=== PATIENT | male | born 1960 | race Caucasian/White ===

== ENCOUNTER 2016-02-20 13:13 | Emergency (ER) | payer OTHER ==
[2016-02-20 13:19] VITALS: TEMP 98; BMI 31.6
--- NOTE | 2016-02-20 13:33 | PDOC ---
History of Present Illness <To Napier - Last Filed: 02/20/16 15:19> - General History Source: Patient Exam Limitations: No Limitations - History of Present Illness Initial Comments: 55 yo M on daily baby aspirin presents with head injury. He states that he was working with shelves, forgot that there were picture frames on one of them, and they all fell down, hitting him on the head. Denies stiff neck, N/V, weakness, numbness. He c/o mild headache. Denies vision changes. No other injuries. <Catherine Douglas - Last Filed: 02/20/16 16:07> - General Chief Complaint: Injury Stated Complaint: HEADACHES, DIZZINESS Time Seen by Provider: 02/20/16 13:18 Past History <To Napier - Last Filed: 02/20/16 15:19> - Past Medical History Anemia: No Asthma: Yes (YEARS AGO) Cancer: No Cardiac Disorders: Yes (MVP) CVA: No COPD: No CHF: No Dementia: No Diabetes: No GI Disorders: Yes (COLONOC ADENOMAS, DIVERTICULOSIS) Disorders: No HTN: Yes (CONTROLLED) Hypercholesterolemia: Yes Liver Disease: Yes (JAVIER, LIVER CYSTS) Seizures: No Thyroid Disease: No - Surgical History Abdominal Surgery: No Appendectomy: No Cardiac Surgery: No Cholecystectomy: No Lung Surgery: No Neurologic Surgery: No Orthopedic Surgery: No - Psycho/Social/Smoking Cessation Hx Suicidal Ideation: No Smoking History: Former smoker Have you smoked in the past 12 months: No If you are a former smoker, when did you quit?: 2014 Information on smoking cessation initiated: No Hx Alcohol Use: Yes (DAILY) Hx Substance Use Treatment: No <Catherine Douglas - Last Filed: 02/20/16 16:07> - Past Medical History Allergies/Adverse Reactions: Allergies Allergy/AdvReac Type Severity Reaction Status Date / Time No Known Allergies Allergy Verified 02/20/16 13:19 Home Medications: Ambulatory Orders Aspirin [ASA -] 81 mg PO DAILY 01/26/16 Cholecalciferol (Vitamin D3) [Vitamin D3 -] 1,000 unit PO DAILY 01/26/16 Multivitamins [Multivit ([facility] Formulary)] 1 tab PO DAILY 01/26/16 [place]-3 Fatty Acids [Fish Oil] 300 mg PO DAILY 01/26/16 Rosuvastatin Calcium [Crestor] 10 mg PO DAILY 01/26/16 Valsartan 160 mg PO DAILY 01/26/16 Review of Systems - Review of Systems Able to Perform ROS?: Yes Comments:: GENERAL/CONSTITUTIONAL: No fever or chills. No weakness. HEAD, EYES, EARS, NOSE AND THROAT: No change in vision. No ear pain or discharge. No sore throat. CARDIOVASCULAR: No chest pain or shortness of breath. RESPIRATORY: No cough, wheezing, or hemoptysis. GASTROINTESTINAL: No nausea, vomiting, diarrhea or constipation. GENITOURINARY: No dysuria, frequency, or change in urination. MUSCULOSKELETAL: No joint or muscle swelling or pain. No neck or back pain. SKIN: No rash NEUROLOGIC: +Mild headache. No vertigo, loss of consciousness, or change in strength/sensation. ENDOCRINE: No increased thirst. No abnormal weight change. HEMATOLOGIC/LYMPHATIC: No anemia, easy bleeding, or history of blood clots. ALLERGIC/IMMUNOLOGIC: No hives or skin allergy. <Catherine Douglas - Last Filed: 02/20/16 16:07> *Physical Exam - Vital Signs Last Vital Signs Temp Pulse Resp BP Pulse Ox 98 F 63 18 135/89 98 02/20/16 13:15 02/20/16 14:53 02/20/16 14:53 02/20/16 14:53 02/20/16 14:53 <To Napier - Last Filed: 02/20/16 15:19> - Vital Signs Last Vital Signs Temp Pulse Resp BP Pulse Ox 98 F 79 18 156/95 98 02/20/16 13:15 02/20/16 13:15 02/20/16 13:15 02/20/16 13:15 02/20/16 13:15 - Physical Exam Comments: GENERAL: Awake, alert, and fully oriented, in no acute distress HEAD: Slight erythema to the top of the head. No swelling, no breaks in the skin. EYES: PERRLA, EOMI, sclera anicteric, conjunctiva clear ENT: Auricles normal inspection, hearing grossly normal, nares patent, oropharynx clear without exudates. Moist mucosa NECK: Normal ROM, supple, no lymphadenopathy, JVD, or masses NEUROLOGICAL: Cranial nerves II through XII grossly intact. Normal speech, normal gait SKIN: Warm, Dry, normal turgor, no rashes or lesions noted. <Catherine Douglas - Last Filed: 02/20/16 16:07> ED Treatment Course - RADIOLOGY Radiograph Interpretation: 02/20/16 15:[address] Reviewed by: Dr. Hernan García Impression: No evidence of acute intracranial pathology. - Medications Given in the ED: ED Medications Discontinued Medications Generic Name Dose Route Start Last Admin Trade Name Irineo PRN Reason Stop Dose Admin Acetaminophen 650 mg 02/20/16 13:41 02/20/16 13:53 Tylenol - PO 02/20/16 13:42 650 mg ONCE ONE Administration <To Napier - Last Filed: 02/20/16 15:19> Medical Decision Making - Medical Decision Making CTH no acute findings. Patient is low risk for ICH. Stable for DC home. <Catherine Douglas - Last Filed: 02/20/16 16:07> *DC/Admit/Observation/Transfer <To Napier - Last Filed: 02/20/16 15:19> - Discharge Dispostion Admit: No <Catherine Douglas - Last Filed: 02/20/16 16:07> Diagnosis at time of Disposition: Head injury Qualifiers: Encounter type: initial encounter Qualified Code(s): S09.90XA - Unspecified injury of head, initial encounter - Discharge Dispostion Disposition: HOME Condition at time of disposition: Stable - Patient Instructions Printed Discharge Instructions: DI for Closed Head Injury
[2016-02-20] MEDS ORDERED: ACETAMINOPHEN 325 MG TABLET (FP) PO ONE (13:41)
[2016-02-20] MEDS ORDERED: ACETAMINOPHEN 325 MG TABLET (FP) ONE (13:49)
[2016-02-20 14:54] VITALS: BP 135/89; PULSE 63
== END 2016-02-20 15:27 | disposition home or self-care (01) ==
LOC: JER 13:13
DX: S09.8XXA Other specified injuries of head, initial encounter (principal); W20.8XXA Other cause of strike by thrown, projected or falling object, initial encounter; Y93.E9 Activity, other interior property and clothing maintenance; Y92.018 Other place in single-family (private) house as the place of occurrence of the external cause; I10 Essential (primary) hypertension; E78.00 Pure hypercholesterolemia, unspecified; I34.1 Nonrheumatic mitral (valve) prolapse
CPT/HCPCS: 70450-TC; 99284-25

== ENCOUNTER 2016-12-01 12:53 | Emergency (ER) | payer OTHER ==
[2016-12-01 13:03] VITALS: BP 150/97; PULSE 75; TEMP 98.1; BMI 33.0
[2016-12-01] MEDS ORDERED: KETOROLAC TROMETHAMINE 60 MG/2 ML VIAL IM ONE (13:07)
--- NOTE | 2016-12-01 13:08 | PDOC ---
History of Present Illness - General Chief Complaint: Pain Stated Complaint: LEFT KNEE PAIN Time Seen by Provider: 12/01/16 13:06 - History of Present Illness Initial Comments: 12/01/16 14:20 Chief complaint: Left knee pain History of present illness: During a round of golf yesterday, after which the patient did considerable walking, he developed severe pain in his left knee. He did not fall and there was no injury, twisting or otherwise. Last night the knee became swollen and more painful, especially with flexion. He took Motrin and Aleve without relief. Review of systems: There was no distinct injury or fall. No distal numbness tingling pain or weakness of the lower leg. No posterior calf swelling or tenderness. No chest pain, shortness of breath, abdominal pain, nausea, vomiting , diarrhea, visual or focal neurologic symptoms, unsteadiness of gait, although there is pain with weightbearing in the knee. Past medical history: Patient sustained a fall about a year ago with injuries to the left knee, but his injury resolved without sequelae. High blood pressure. Elevated cholesterol. Family history significant for coronary artery disease and diabetes in both parents. An older sisters healthy without known medical problems Social history: No tobacco or nonprescription drugs. Occasional social alcohol, none recently. senior web developer, still working full-time, stable home and family. Physical exam: Alert and oriented well-developed well-nourished no acute distress cheerful and cooperative Afebrile, vital signs normal Left knee: Mild diffuse swelling, no effusion, no erythema, induration, warmth, or point tenderness. No deformity. No stress tenderness of the MCL or LCL. Lockman is indeterminant due to pain and guarding. Range of motion is limited in flexion to around 90 before pain. Distal pulses full. No distal sensory or motor deficits. No posterior calf swelling or tenderness. No cords. Alysia negative Impression: Overuse injury of the knee, knee strain, ligamentous versus meniscus. Plan: X-ray and further orthopedic evaluation. Past History - Past Medical History Allergies/Adverse Reactions: Allergies Allergy/AdvReac Type Severity Reaction Status Date / Time No Known Allergies Allergy Verified 12/01/16 12:53 Home Medications: Ambulatory Orders Cholecalciferol (Vitamin D3) [Vitamin D3 -] 2,000 unit PO DAILY 01/26/16 Multivitamins [Multivit ([facility] Formulary)] 1 tab PO DAILY 01/26/16 [place]-3 Fatty Acids [Fish Oil] 300 mg PO DAILY 01/26/16 Rosuvastatin Calcium [Crestor] 10 mg PO DAILY 01/26/16 Valsartan 160 mg PO DAILY 01/26/16 Aspirin [Aspirin EC] 81 mg PO DAILY 12/01/16 Ketorolac Tromethamine [Toradol] 10 mg PO Q6H #20 tablet 12/01/16 Anemia: No Asthma: Yes (YEARS AGO) Cancer: No Cardiac Disorders: Yes (MVP) CVA: No COPD: No CHF: No Dementia: No Diabetes: No GI Disorders: Yes (COLONOC ADENOMAS, DIVERTICULOSIS) Disorders: No HTN: Yes (CONTROLLED) Hypercholesterolemia: Yes Liver Disease: Yes (JAVIER, LIVER CYSTS) Seizures: No Thyroid Disease: No - Surgical History Abdominal Surgery: No Appendectomy: No Cardiac Surgery: No Cholecystectomy: No Lung Surgery: No Neurologic Surgery: No Orthopedic Surgery: No - Suicide/Smoking/Psychosocial Hx Smoking History: Former smoker Have you smoked in the past 12 months: No If you are a former smoker, when did you quit?: 2014 Information on smoking cessation initiated: No Hx Alcohol Use: Yes (3-4 WEEKS 2 GLASSES OF WINE) Drug/Substance Use Hx: No Substance Use Type: Alcohol Hx Substance Use Treatment: No *Physical Exam - Vital Signs Last Vital Signs Temp Pulse Resp BP Pulse Ox 98.1 F 75 20 150/97 98 12/01/16 12:53 12/01/16 12:53 12/01/16 12:53 12/01/16 12:53 12/01/16 12:53 Medical Decision Making - Medical Decision Making 12/01/16 14:25 X-ray: Negative Asim wrap and knee immobilizer applied. Patient is much more comfortable in the knee immobilizer and able to ambulate extremely well. Instructed on the use of Asim wrap and immobilizer, and reviewed with his . Toradol administered IM with continuation of Toradol by mouth at home. The patient has a relationship with Dr. Hansen/ [facility], and has an appointment to follow-up with them early next week. He is encouraged to do so and aware that further evaluation may be necessary if his symptoms do not improve *DC/Admit/Observation/Transfer Diagnosis at time of Disposition: Knee sprain Qualifiers: Encounter type: initial encounter Involved ligament of knee: unspecified ligament Laterality: left Qualified Code(s): S83.92XA - Sprain of unspecified site of left knee, initial encounter - Discharge Dispostion Disposition: HOME Condition at time of disposition: Improved Admit: No - Prescriptions Prescriptions: Ketorolac Tromethamine [Toradol] 10 mg PO Q6H #20 tablet - Patient Instructions Printed Discharge Instructions: DI for Knee Sprain, How to Use an Elastic Bandage-Knee Sprain, How to Use a Knee Immobilizer Additional Instructions: See your orthopedist as scheduled in 2-3 days Medication as directed Rest ice elevate Asim wrap and knee immobilizer as directed. Avoid prolonged standing or walking, but steady moderately active.
[2016-12-01] MEDS ORDERED: KETOROLAC TROMETHAMINE 60 MG/2 ML VIAL ONE (13:43)
== END 2016-12-01 14:01 | disposition home or self-care (01) ==
LOC: FER 12:53
PROC: 3E0233Z Introduction of Anti-inflammatory into Muscle, Percutaneous Approach (ICD-10-PCS; principal; 2016-12-01)
DX: S83.92XA Sprain of unspecified site of left knee, initial encounter (principal); I10 Essential (primary) hypertension; E78.00 Pure hypercholesterolemia, unspecified
CPT/HCPCS: 73560-TC-LT; 99282-25

== ENCOUNTER 2018-05-31 18:25 | Emergency (ER) | payer OTHER ==
[2018-05-31 18:32] VITALS: BP 125/78; PULSE 98; TEMP 98.1; BMI 31.6
[2018-05-31] MEDS ORDERED: LIDOCAINE HCL 2% (20ML MULTI-DOSE VIAL) NR ONE (18:46)
--- NOTE | 2018-05-31 18:51 | PDOC ---
History of Present Illness - General History Source: Patient Exam Limitations: No Limitations - History of Present Illness Initial Comments: 05/31/18 18:54 The patient is a 58-year-old male with a past medical history significant for HTN and HLD presents to the emergency department with a thumb laceration. The patient reports he was putting up the patio umbrella when he pushed the button to adjust the umbrella when the umbrella slipped. The patient reports his edge of the right thumb was caught between the stand and the umbrella. The patient reports the wound started to bleed immediately. The patient states he irrigate the wound with water, with pain. The patient reports the daily use of 81 mg of ASA. Denies hx of DM or steroid use. Allergies: NKDA PCP: Dr. Gómez Arango. <Perla Heredia - Last Filed: 05/31/18 18:54> <Flynn Pisano - Last Filed: 05/31/18 19:10> - General Chief Complaint: Injury Stated Complaint: RT THUMB LACERATION Time Seen by Provider: 05/31/18 18:46 Past History <Perla Heredia - Last Filed: 05/31/18 18:54> - Past Medical History Anemia: No Asthma: Yes (YEARS AGO) Cancer: No Cardiac Disorders: Yes (MVP) CVA: No COPD: No CHF: No Dementia: No Diabetes: No GI Disorders: Yes (COLONOC ADENOMAS, DIVERTICULOSIS) Disorders: No HTN: Yes (CONTROLLED) Hypercholesterolemia: Yes Liver Disease: Yes (JAVIER, LIVER CYSTS) Seizures: No Thyroid Disease: No - Surgical History Abdominal Surgery: No Appendectomy: No Cardiac Surgery: No Cholecystectomy: No Lung Surgery: No Neurologic Surgery: No Orthopedic Surgery: No - Suicide/Smoking/Psychosocial Hx Smoking History: Never smoked Have you smoked in the past 12 months: No If you are a former smoker, when did you quit?: 2014 Information on smoking cessation initiated: No Hx Alcohol Use: Yes (DAILY) Drug/Substance Use Hx: No Substance Use Type: Alcohol Hx Substance Use Treatment: No <Flynn Pisano - Last Filed: 05/31/18 19:10> - Past Medical History Allergies/Adverse Reactions: Allergies Allergy/AdvReac Type Severity Reaction Status Date / Time No Known Allergies Allergy Verified 05/31/18 18:27 Home Medications: Ambulatory Orders Cholecalciferol (Vitamin D3) [Vitamin D3 -] 2,000 unit PO DAILY 01/26/16 Multivitamins [Multivit ([facility] Formulary)] 1 tab PO DAILY 01/26/16 [place]-3 Fatty Acids [Fish Oil] 300 mg PO DAILY 01/26/16 Rosuvastatin Calcium [Crestor] 10 mg PO DAILY 01/26/16 Valsartan 160 mg PO DAILY 01/26/16 Aspirin [Aspirin EC] 81 mg PO DAILY 12/01/16 Cider Vinegar [Apple Cider Vinegar] 500 mg PO ASDIR 05/31/18 Review of Systems - Review of Systems Able to Perform ROS?: Yes Comments:: 05/31/18 18:54 Constitutional - Pt denies Fever, Chills, weakness, HEENT: denies vision changes, sore throat Respiratory: Denies cough, sob, hemoptysis Cardiac: denies chest pain, palpitations, light headedness, leg swelling Abd/GI: denies abd pain, nausea, vomiting, blood per rectum, melena, diarrhea : denies dysuria, frequency, discharge Musculskelatal - denies back pain, joint swelling skin - +right thumb laceration. denies bruising, erythema, rash neurological: denies headache, numbness, focal weakness, tingling, ataxia, weakness hematologic: denies anemia, easy bruising, easy bleeding <Perla Heredia - Last Filed: 05/31/18 18:54> *Physical Exam - Vital Signs Last Vital Signs Temp Pulse Resp BP Pulse Ox 98.1 F 98 H 18 125/78 99 05/31/18 18:25 05/31/18 18:25 05/31/18 18:25 05/31/18 18:25 05/31/18 18:25 <Perla Heredia - Last Filed: 05/31/18 18:54> - Vital Signs Last Vital Signs Temp Pulse Resp BP Pulse Ox 98.1 F 98 H 18 125/78 99 05/31/18 18:25 05/31/18 18:25 05/31/18 18:25 05/31/18 18:25 05/31/18 18:25 - Physical Exam Comments: 05/31/18 19:06 MSK: skin avulsion on tip of Right thumb, no active bleeding, no nail involvement <Flynn Pisano - Last Filed: 05/31/18 19:10> Procedures - Consent Consent obtained: Verbal - Laceration/Wound Repair Right 1st digit Wound Length: to 2.5 cm Wound Explored: clean Wound's Depth, Shape: superficial Irrigated w/ Saline: Yes Anesthesia: 1% Lidocaine Amount of Anesthetic (ccs): 1 Wound Debrided: minimal Wound Repaired With: Dermabond <Flynn Pisano - Last Filed: 05/31/18 19:10> Medical Decision Making - Medical Decision Making 05/31/18 19:07 area numbed with topical lidocain, irrigated with sterile saline and dermabodned no skin for reapproximation, but dermabdon applied to prevent bleeding tetanus updated <Flynn Pisano - Last Filed: 05/31/18 19:10> *DC/Admit/Observation/Transfer - Attestations Scribe Attestion: 05/31/18 18:55 Documentation prepared by Perla Heredia, acting as medical biller/coder for Flynn Pisano MD. <Perla Heredia - Last Filed: 05/31/18 18:54> - Discharge Dispostion Decision to Admit order: No <Flynn Pisano - Last Filed: 05/31/18 19:10> Diagnosis at time of Disposition: Laceration of thumb Qualifiers: Encounter type: initial encounter Damage to nail status: without damage Foreign body presence: without foreign body Laterality: right Qualified Code(s) : S61.011A - Laceration without foreign body of right thumb without damage to nail, initial encounter - Discharge Dispostion Disposition: HOME Condition at time of disposition: Improved - Referrals Referrals: Jacob Arango MD [Primary Care Provider] - - Patient Instructions Printed Discharge Instructions: DI for Laceration Repair With Dermabond Additional Instructions: Please keep the area clean, you may clean gently with soap and water. Do not apply any lotions, bacitracin, or ointment to the glued surface. The glue will dissolve on its own over the next few days. If you have any redness, swelling, worsening pain, discharge, bleeding or other concerns, return to the Emergency Department for further evaluation. Print Language: [place]LAND[place] - Post Discharge Activity
[2018-05-31] MEDS ORDERED: LIDOCAINE HCL 2% (50ML VIAL) DT ONE (18:52)
[2018-05-31] MEDS ORDERED: DIPHTH,PERTUSS(ACELL),TET 0.5 ML DISP.SYRIN IM ONE ×2 (18:52→18:55)
== END 2018-05-31 19:10 | disposition home or self-care (01) ==
LOC: FER 18:25
PROC: 3E0234Z Introduction of Serum, Toxoid and Vaccine into Muscle, Percutaneous Approach (ICD-10-PCS; principal; 2018-05-31)
PROC: 0HQFXZZ Repair Right Hand Skin, External Approach (ICD-10-PCS; 2018-05-31)
DX: S61.011A Laceration without foreign body of right thumb without damage to nail, initial encounter (principal); W20.8XXA Other cause of strike by thrown, projected or falling object, initial encounter; Y93.89 Activity, other specified; Y92.89 Other specified places as the place of occurrence of the external cause; I10 Essential (primary) hypertension; E78.5 Hyperlipidemia, unspecified; Z87.891 Personal history of nicotine dependence; K75.81 Nonalcoholic steatohepatitis (NASH); I34.1 Nonrheumatic mitral (valve) prolapse
CPT/HCPCS: 90715; 99283-25

== ENCOUNTER 2018-10-08 10:11 | Day surgery (SDC) | payer OTHER ==
[2018-10-07 16:19] VITALS: BMI 34.2
[2018-10-08 11:40] VITALS: TEMP 98.7
[2018-10-08 12:35] VITALS: BP 128/82; PULSE 63
--- NOTE | 2018-10-09 16:57 | PATH ---
Surgical Pathology Report Patient Name: CESAR ANDERSON [facility]. Rec. #: [id number] /Age/Gender: 1960 (Age: 58) / M Account: [id number] Location: [facility]-ENDOSCOPY Taken: 10/08/2018 Received: 10/08/2018 Reported: 10/09/2018 Physicians: Liang Berger M.D. Specimen(s) Received A: POLYP CECUM B: PROXIMAL TRANSVERSE COLON POLYP Clinical History Adenoma surveillance Postoperative diagnosis: Colon polyps, hemorrhoids Final Diagnosis A. CECUM, POLYP, BIOPSY: TUBULAR ADENOMA. B. PROXIMAL TRANSVERSE COLON, POLYP, BIOPSY: POLYPOID COLONIC MUCOSA WITH SUPERFICIAL HYPERPLASTIC FEATURES. Electronically Signed Mireya Matute M.D. Gross Description A. Received in formalin, labeled "polyp cecum" are 2 toth, irregular portions of soft tissue measuring 0.1 and 0.2 cm. in greatest dimension. The specimens are submitted in toto in one cassette. B. Received in formalin, labeled "proximal transverse colon polyp" are 2 toth, irregular portions of soft tissue measuring 0.2 and 0.6 cm. in greatest dimension. The specimens are submitted in toto in one cassette. MLSZ/10/08/2018 sanml/10/08/2018
== END 2018-10-08 12:35 | disposition home or self-care (01) ==
LOC: JASU-ENDO 10:11
PROVIDERS: ATTEND Internal Medicine Gastroenterology
PROC: 0DBL8ZX Excision of Transverse Colon, Via Natural or Artificial Opening Endoscopic, Diagnostic (ICD-10-PCS; 2018-10-08)
PROC: 0DBH8ZX Excision of Cecum, Via Natural or Artificial Opening Endoscopic, Diagnostic (ICD-10-PCS; principal; 2018-10-08 10:30)
DX: Z86.010 Personal history of colon polyps (principal); D12.0 Benign neoplasm of cecum; K63.5 Polyp of colon; K57.30 Diverticulosis of large intestine without perforation or abscess without bleeding; K64.8 Other hemorrhoids; I10 Essential (primary) hypertension; E78.5 Hyperlipidemia, unspecified
CPT/HCPCS: 88305-TC

== ENCOUNTER 2019-03-25 09:05 | Day surgery (SDC) | payer OTHER ==
[2019-03-23 14:39] VITALS: BMI 31.6
[2019-03-25] MEDS: CIPROFLOXACIN 0.3% EYE DROPS 5 ML BOTTLE ONE ×3 (09:45→09:55)
[2019-03-25] MEDS: CYCLOPENTOLATE 2% OPHTH SOLN 2 ML BOTTLE ONE ×3 (09:45→09:55)
[2019-03-25] MEDS: PHENYLEPHRINE 2.5% OPHTH SOLN 15 ML BOTTLE ONE ×3 (09:45→09:55)
[2019-03-25] MEDS: TROPICAMIDE 1% OPHTH SOLN 15 ML BOTTLE ONE ×3 (09:45→09:55)
[2019-03-25] MEDS ORDERED: CARBACHOL 0.01% INTRA-OCULAR 1.5 ML VIAL ONE (09:48)
[2019-03-25] MEDS ORDERED: BSS (NA/CA/MG/K) BALANCED SALT SOLUTION OPHTH SOLN 15 ML BOTTLE ONE (09:48)
[2019-03-25] MEDS ORDERED: NEO/POLYMYX B SULF/DEXAMETH OPHTHALMIC 5ML BOTTLE ONE (09:48)
[2019-03-25] MEDS ORDERED: MIDAZOLAM HCL 2 MG/2 ML SINGLE DOSE VIAL ONE ×3 (10:50→11:22)
[2019-03-25 11:55] VITALS: TEMP 98.2
[2019-03-25] MEDS ORDERED: ACETAMINOPHEN 325 MG TABLET (FP) PO PRN (12:49)
[2019-03-25] MEDS ORDERED: ONDANSETRON 4 MG/2 ML VIAL IVPUSH PRN (12:49)
[2019-03-25] MEDS ORDERED: LACTATED RINGERS SOLUTION 1,000 ML IV SCH (13:00)
[2019-03-25 13:14] VITALS: BP 121/77; PULSE 84
--- NOTE | 2019-03-25 21:50 | OP ---
DATE OF OPERATION: 03/25/2019 OPERATIVE PROCEDURE: Lens Phacoemulsification with Posterior Chamber Intraocular Lens Placement Left Eye PREOPERATIVE DIAGNOSIS: Visually Significant Cataract of Left Eye POSTOPERATIVE DIAGNOSIS: Visually Significant Cataract of Left Eye SURGEON: Fabrizio Alexander M.D. ANESTHESIA: MAC PROCEDURE: The patient was brought to the operating room and placed under monitored anesthesia care by Anesthesia. A drop of Tetracaine was then placed over the left eye. The patient was then prepped and draped in the usual sterile manner. A speculum was then placed over the left eye. The eye was then well irrigated with copious amounts of BSS (balanced salt solution). The operating microscope was then moved into position. A paracentesis was performed using a 15 degree blade. At this point 0.5 mL of 1% preservative-free lidocaine was injected into the anterior chamber. Amvisc plus was then injected into the anterior chamber. A clear corneal incision was then formed using a 2.2 mm keratome. A capsulorrhexis was then performed in a continuous circular fashion beginning with a cystotome, completed with an Utratas forceps. Hydrodissection was then performed using BSS on a cannula. The phaco probe was then introduced through the corneal wound and the cataract was removed using the phaco chop technique. Approximately 3 seconds of absolute phaco time was used. The remaining cortex was then removed using irrigation and aspiration with an I/A probe. The capsule was then filled with regular Amvisc and the capsule was noted to be intact. A previously selected foldable posterior chamber intraocular lens was then injected into the capsule through the corneal wound using a lens injector. It was then dialed into position using a Sinskey hook. The Amvisc was then removed using irrigation and aspiration. Miostat was then injected through the paracentesis to constrict the pupil. The paracentesis and corneal wound were then hydrated and noted to be water tight. A drop of Maxitrol was then placed over the eye. The speculum was removed and clear shield was taped over the eye. The patient tolerated the procedure well and there were no surgical complications. The patient was asked to follow up in my office the next day. FABRIZIO ALEXANDER M.D. [id number]
== END 2019-03-25 13:00 | disposition home or self-care (01) ==
LOC: FASU 09:05
PROVIDERS: ATTEND Ophthalmology
PROC: 08RK3JZ Replacement of Left Lens with Synthetic Substitute, Percutaneous Approach (ICD-10-PCS; principal; 2019-03-25 11:25)
DX: H26.8 Other specified cataract (principal)

== ENCOUNTER 2019-04-15 07:30 | Day surgery (SDC) | payer OTHER ==
[2019-04-08 10:53] VITALS: BMI 31.6
[2019-04-15] MEDS: TROPICAMIDE 1% OPHTH SOLN 15 ML BOTTLE ONE ×3 (08:05→08:15)
[2019-04-15] MEDS: CIPROFLOXACIN 0.3% EYE DROPS 5 ML BOTTLE ONE ×3 (08:05→08:15)
[2019-04-15] MEDS: PHENYLEPHRINE 2.5% OPHTH SOLN 15 ML BOTTLE ONE ×3 (08:05→08:15)
[2019-04-15] MEDS: CYCLOPENTOLATE 2% OPHTH SOLN 2 ML BOTTLE ONE ×3 (08:05→08:15)
[2019-04-15] MEDS ORDERED: NEO/POLYMYX B SULF/DEXAMETH OPHTHALMIC 5ML BOTTLE ONE (09:03)
[2019-04-15] MEDS ORDERED: TETRACAINE 0.5% OPHTH SOLN 2 ML BOTTLE ONE (09:03)
[2019-04-15] MEDS ORDERED: LIDOCAINE 1% P/F 10 MG/ML VIAL ONE (09:03)
[2019-04-15] MEDS ORDERED: BSS (NA/CA/MG/K) BALANCED SALT SOLUTION OPHTH SOLN 15 ML BOTTLE ONE (09:03)
[2019-04-15] MEDS ORDERED: CARBACHOL 0.01% INTRA-OCULAR 1.5 ML VIAL ONE (09:03)
[2019-04-15] MEDS ORDERED: MIDAZOLAM HCL 2 MG/2 ML SINGLE DOSE VIAL ONE ×2 (09:15)
[2019-04-15 10:19] VITALS: BP 121/74; PULSE 76; TEMP 98
[2019-04-15] MEDS ORDERED: ACETAMINOPHEN 325 MG TABLET (FP) PO PRN (10:40)
[2019-04-15] MEDS ORDERED: ONDANSETRON 4 MG/2 ML VIAL IVPUSH PRN (10:40)
[2019-04-15] MEDS ORDERED: LACTATED RINGERS SOLUTION 1,000 ML IV SCH (10:45)
--- NOTE | 2019-04-15 18:16 | OP ---
DATE OF OPERATION: 04/15/2019 OPERATIVE PROCEDURE: Lens Phacoemulsification with Posterior Chamber Intraocular Lens Placement Right Eye PREOPERATIVE DIAGNOSIS: Visually Significant Cataract of Right Eye POSTOPERATIVE DIAGNOSIS: Visually Significant Cataract of Right Eye SURGEON: Fabrizio Alexander M.D. ANESTHESIA: MAC PROCEDURE: The patient was brought to the operating room and placed under monitored anesthesia care by Anesthesia. A drop of Tetracaine was then placed over the right eye. The patient was then prepped and draped in the usual sterile manner. A speculum was then placed over the right eye. The eye was then well irrigated with copious amounts of BSS (balanced salt solution). The operating microscope was then moved into position. A paracentesis was performed using a 15 degree blade. At this point 0.5 mL of 1% preservative-free lidocaine was injected into the anterior chamber. Amvisc plus was then injected into the anterior chamber. A clear corneal incision was then formed using a 2.2 mm keratome. A capsulorrhexis was then performed in a continuous circular fashion beginning with a cystotome, completed with an Utratas forceps. Hydrodissection was then performed using BSS on a cannula. The phaco probe was then introduced through the corneal wound and the cataract was removed using the phaco chop technique. Approximately 3 seconds of absolute phaco time was used. The remaining cortex was then removed using irrigation and aspiration with an I/A probe. The capsule was then filled with regular Amvisc and the capsule was noted to be intact. A previously selected foldable posterior chamber intraocular lens was then injected into the capsule through the corneal wound using a lens injector. It was then dialed into position using a Sinskey hook. The Amvisc was then removed using irrigation and aspiration. Miostat was then injected through the paracentesis to constrict the pupil. The paracentesis and corneal wound were then hydrated and noted to be water tight. A drop of Maxitrol was then placed over the eye. The speculum was removed and clear shield was taped over the eye. The patient tolerated the procedure well and there were no surgical complications. The patient was asked to follow up in my office the next day. FABRIZIO ALEXANDER M.D. [id number]
== END 2019-04-15 10:22 | disposition home or self-care (01) ==
LOC: FASU 07:30
PROVIDERS: ATTEND Ophthalmology
PROC: 08RJ3JZ Replacement of Right Lens with Synthetic Substitute, Percutaneous Approach (ICD-10-PCS; principal; 2019-04-15 09:00)
DX: H26.8 Other specified cataract (principal)

== ENCOUNTER 2019-05-02 21:50 | Inpatient (IN) | payer OTHER ==
[2019-05-02] MEDS ORDERED: NITROGLYCERIN SUBLINGUAL 1/150 0.4 MG TAB SL ONE ×2 (21:55→22:00)
[2019-05-02] MEDS ORDERED: VALSARTAN 80 MG TABLET (UD) PO ONE (22:08)
[2019-05-02] MEDS ORDERED: CLOPIDOGREL BISULFATE 300 MG TABLET PO ONE (22:08)
[2019-05-02] MEDS ORDERED: VALSARTAN 40 MG TABLET (FP) PO ONE (22:12)
[2019-05-02] MEDS ORDERED: SODIUM CHLORIDE 0.9% 500 ML INFUS.BAG IV ONE (22:13)
[2019-05-02] MEDS ORDERED: FAMOTIDINE 20 MG/50 ML IVPB 20 MG/50 ML MG IVPB ONE ×2 (22:13→22:19)
[2019-05-02] MEDS ORDERED: ASPIRIN 81 MG CHEWABLE TABLETS ONE (22:18)
[2019-05-02] MEDS ORDERED: CLOPIDOGREL BISULFATE 300 MG TABLET ONE (22:18)
[2019-05-02] MEDS ORDERED: VALSARTAN 80 MG TABLET (UD) ONE (22:19)
[2019-05-02 22:42] LABS: BASO % 0.7 % (0-2.0); EOS % 0.8 % (0-4.5); HEMATOCRIT 39.8 % (35.4-49); HEMOGLOBIN 13.3 GM/dL (11.7-16.9); LYMPH % 24.1 % (8-40); MCH 29.9 pg (25.7-33.7); MCHC 33.4 g/dl (32.0-35.9); MEAN CELL VOLUME 89.5 fl (80-96); MEAN PLT VOLUME 8.4 fl (7.5-11.1); MONO % 7.7 % (3.8-10.2); NEUT % 66.7 % (42.8-82.8); PLATELET COUNT 193 K/MM3 (134-434); RBC 4.45 M/mm3 (4.00-5.60); RDW 13.9 % (11.9-15.9); WHITE BLOOD COUNT 5.9 K/mm3 (4.0-10.0)
[2019-05-02 22:48] LABS: INR 0.97 (0.83-1.09); PROTHROMBIN TIME (PATIENT) 11.4 SEC (9.7-13.0)
[2019-05-02 23:23] LABS: ALBUMIN 3.8 g/dl (3.4-5.0); ALK PHOS 67 U/L (45-117); ANION GAP 13 MMOL/L (8-16); BILIRUBIN,TOTAL 0.4 mg/dL (0.2-1); BLOOD UREA NITROGEN 17.1 mg/dL (7-18); CALCIUM 8.3 mg/dL (8.5-10.1); CHLORIDE 108 mmol/L (98-107); CO2 22 mmol/L (21-32); GLUCOSE,RANDOM 160 mg/dL (74-106); N-TERMINAL BNP 9.8 pg/ml (5-125); POTASSIUM 3.6 mmol/L (3.5-5.1); SGOT/AST 28 U/L (15-37); SGPT/ALT 29 U/L (13-61); SODIUM 143 mmol/L (136-145); TOT PROT 6.8 g/dl (6.4-8.2)
--- NOTE | 2019-05-02 23:32 | PDOC ---
Documentation entered by Fracisco Connell SCRIBE, acting as scribe for Anne Martinez MD. Anne Martinez MD: This documentation has been prepared by the Ko partida Daniel, SCRIBE, under my direction and personally reviewed by me in its entirety. I confirm that the documentation accurately reflects all work, treatment, procedures, and medical decision making performed by me. History of Present Illness - General Chief Complaint: Shortness of Breath Stated Complaint: SHORTNESS OF BREATH,VOMITING Time Seen by Provider: 05/02/19 22:08 History Source: Patient Exam Limitations: No Limitations - History of Present Illness Initial Comments: 05/02/19 22:40 The patient is a 59 year old male with a past medical history of HTN, HLD, and obesity here today for evaluation of shortness of breath and vomiting. The patient reports that he had a sudden onset of shortness of breath, nausea, and one episode of vomiting. He states that he had three drinks prior to this incident, one vodkatini and 2 glasses of wine and that he went to a [employer] for the first time today. On arrival, the patient was hyperventilating, tachycardic, tachypnic, on a nasal cannula at 100% oxygenation, and had a systolic blood pressure of 178. He denies any heavy lifting today. Patient denies headache, lightheadedness. Denies fever, chills. Denies chest pain. Denies diarrhea, abdominal pain. Allergies: NKA Social history: Denies tobacco use. PCP: Jacob Arango Unit Manager Rn: Lj Jones Past History - Past Medical History Allergies/Adverse Reactions: Allergies Allergy/AdvReac Type Severity Reaction Status Date / Time No Known Allergies Allergy Verified 05/02/19 22:01 Home Medications: Ambulatory Orders Cholecalciferol (Vitamin D3) [Vitamin D3 -] 2,000 unit PO DAILY 01/26/16 Multivitamins [Multivit ([facility] Formulary)] 1 tab PO DAILY 01/26/16 [place]-3 Fatty Acids [Fish Oil] 300 mg PO DAILY 01/26/16 Rosuvastatin Calcium [Crestor] 10 mg PO DAILY 01/26/16 Valsartan 160 mg PO DAILY 01/26/16 Aspirin [Aspirin EC] 81 mg PO DAILY 12/01/16 Cider Vinegar [Apple Cider Vinegar] 1,200 mg PO ASDIR 05/31/18 Amlodipine Besylate 10 mg PO DAILY 10/08/18 Anemia: No Asthma: Yes (YEARS AGO) Cancer: No Cardiac Disorders: Yes (MVP, 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) CVA: No COPD: No CHF: No Dementia: No Diabetes: No GI Disorders: Yes (COLONOC ADENOMAS, DIVERTICULOSIS) Disorders: No HTN: Yes (CONTROLLED) Hypercholesterolemia: Yes Liver Disease: Yes (JAVIER, LIVER CYSTS) Seizures: No Thyroid Disease: No - Surgical History Abdominal Surgery: No Appendectomy: No Cardiac Surgery: No Cholecystectomy: No Lung Surgery: No Neurologic Surgery: No Orthopedic Surgery: No - Psycho Social/Smoking Cessation Hx Smoking History: Unknown if ever smoked Have you smoked in the past 12 months: No If you are a former smoker, when did you quit?: 2014 Information on smoking cessation initiated: No Hx Alcohol Use: No Drug/Substance Use Hx: No Substance Use Type: Alcohol Hx Substance Use Treatment: No Review of Systems - Review of Systems Able to Perform ROS?: Yes Comments:: 05/02/19 22:40 GENERAL/CONSTITUTIONAL: No fever or chills. No weakness. HEAD, EYES, EARS, NOSE AND THROAT: No change in vision. No ear pain or discharge. No sore throat. CARDIOVASCULAR: No chest pain or shortness of breath. RESPIRATORY: +shortness of breath. No cough, wheezing, or hemoptysis. GASTROINTESTINAL: +vomiting. +nausea. No diarrhea or constipation. GENITOURINARY: No dysuria, frequency, or change in urination. MUSCULOSKELETAL: No joint or muscle swelling or pain. No neck or back pain. SKIN: No rash NEUROLOGIC: No headache, vertigo, loss of consciousness, or change in str ength/sensation. ENDOCRINE: No increased thirst. No abnormal weight change. HEMATOLOGIC/LYMPHATIC: No anemia, easy bleeding, or history of blood clots. ALLERGIC/IMMUNOLOGIC: No hives or skin allergy. *Physical Exam - Vital Signs Last Vital Signs Temp Pulse Resp BP Pulse Ox 97.5 F L 109 H 28 H 161/123 H 100 05/02/19 22:03 05/02/19 22:01 05/02/19 22:01 05/02/19 22:01 05/02/19 22:01 - Physical Exam 05/02/19 22:40 GENERAL: Awake, alert, and fully oriented, in no acute distress, afebrile. HEAD: No signs of trauma EYES: PERRLA, EOMI, sclera anicteric, conjunctiva clear ENT: Auricles normal inspection, hearing grossly normal, nares patent, oropharynx clear without exudates. Moist mucosa NECK: Normal ROM, supple, no lymphadenopathy, JVD, or masses LUNGS: Breath sounds equal, clear to auscultation bilaterally. No wheezes, and no crackles HEART: Regular rate and rhythm, normal S1 and S2, no murmurs, rubs or gallops ABDOMEN: +obese abdomen. Soft, nontender, normoactive bowel sounds. No guarding, no rebound. No masses EXTREMITIES: Normal range of motion, no edema. No clubbing or cyanosis. No cords, erythema, or tenderness NEUROLOGICAL: Cranial nerves II through XII grossly intact. Normal speech, normal gait SKIN: Warm, Dry, normal turgor, no rashes or lesions noted. ED Treatment Course - LABORATORY CBC & Chemistry Diagram: 05/02/19 22:30 05/02/19 22:30 Medical Decision Making - Medical Decision Making 05/02/19 22:48 CXR normal EKG: sinus tachycardia 05/02/19 22:48 CBC normal 05/02/19 23:33 Pt's cardiologust is . I called and left message. Also calling Dr. Arango's service. Will admit to tele under hospitalists 05/02/19 23:53 Pt's BP is 118 now Pt says he feels great Dr. Hilton is coming to see the patient. 05/03/19 02:01 ddimer is negative pt feels great and he will be sent to ICU, as there are no tele beds available. Discharge - Discharge Information Problems reviewed: Yes Clinical Impression/Diagnosis: Chest pain, Nausea & vomiting, Diabetes mellitus, new onset, CAD (coronary artery disease), HTN (hypertension) Condition: Guarded - Admission Yes - Follow up/Referral - Patient Discharge Instructions - Post Discharge Activity
--- NOTE | 2019-05-02 23:53 | PN ---
Teaching Attending Note Name of Resident: Duane Oscar ATTENDING PHYSICIAN STATEMENT I saw and evaluated the patient. I reviewed the resident's note and discussed the case with the resident. I agree with the resident's findings and plan as documented. SUBJECTIVE: Patient is a 59 year old man with a PMH of HTN, Asthma (quiescent for over 25 ye ars), PreDiabetes, MVP, Colonic adenoma, Diverticulosis, JAVIER, Liver cysts and HLD who presents with shortness of breath and vomiting. The patient reports that he had a sudden onset of shortness of breath, nausea, and one episode of vomiting. He states that he had three drinks prior to this incident, one vodkatini and 2 glasses of wine and that he went to a [facility] for the first time today. On arrival, the patient was hyperventilating, tachycardic, tachypneic, on a nasal cannula at 100% oxygenation, and had a systolic blood pressure of 178. He denies any heavy lifting today. Patient denies headache, lightheadedness, fever, chills, chest pain, diarrhea, abdominal pain, dysuria, frequency or urgency. Quit smoking in 2014. Denies alcohol, tobacco or illicit drug use. No sick contacts or recent travels. OBJECTIVE: Alert Vital Signs Period Temp Pulse Resp BP Sys/Johnson Pulse Ox Last 24 Hr 97.5 F 109 28 161/123 100 HEENT: No Jaundice, eye redness or discharge, PERRLA, EOMI. Normocephalic, atraumatic. External ears are normal and hearing is grossly intact. No nasal discharge. Neck: Supple, nontender. No palpable adenopathy or thyromegaly. No JVD Chest: Good effort. Clear to auscultation and percussion. Heart: Regular. No S3, rub or murmur Abdomen: Not distended, soft, nontender and no HSM. No rebound or guarding. Normal bowel sounds. Ext: Peripheral pulses intact. No leg edema. Skin: Warm and dry. No petechiae, rash or ecchymosis. Neuro: Alert. Oriented x3. CN 2-12 grossly intact. Sensation grossly intact in all four extremities and DTR are symmetric. Psych: Appropriate mood and affect. Good insight. Current Medications Generic Name Dose Route Start Last Admin Trade Name Freq PRN Reason Stop Dose Admin Aspirin 162 mg 05/03/19 10:00 05/02/19 22:36 Asa - PO 162 mg DAILY ANTONINO Administration Home Medications Medication Instructions Recorded Cholecalciferol (Vitamin D3) 2,000 unit PO DAILY 01/26/16 [Vitamin D3 -] Multivitamins [Multivit ([facility] 1 tab PO DAILY 01/26/16 Formulary)] [place]-3 Fatty Acids [Fish Oil] 300 mg PO DAILY 01/26/16 Rosuvastatin Calcium [Crestor] 10 mg PO DAILY 01/26/16 Valsartan 160 mg PO DAILY 01/26/16 Aspirin [Aspirin EC] 81 mg PO DAILY 12/01/16 Cider Vinegar [Apple Cider Vinegar] 1,200 mg PO ASDIR 05/31/18 Amlodipine Besylate 10 mg PO DAILY 10/08/18 Abnormal Lab Results 05/02/19 22:30 Chloride 108 H Random Glucose 160 H Calcium 8.3 L CK-MB (CK-2) 4.2 H ASSESSMENT AND PLAN: 1. Rule out ACS/PE - Symptoms resolved without any treatment and he is resting comfortably in the ER. Offers no new complaint. No acute abnormality on CXR. In the ER he got Aspirin, Plavix, Pedcid, IV NS and Valsartan. D-Dimer pending. Initial troponin is negative. EKG shows sinus tachycardia with no significant changes of ischemia. Bermudez concern is pulmonary embolism. Will get CTA chest, CT abdomen/pelvis, urinalysis, urine toxicology, alcohol level, fasting lipid profile, TSH, HbA1c and monitor on telemetry to rule out ACS. Will continue comprehensive care for all of patients comorbid conditions. 2. Hypertension - Restart suitable outpatient antihypertensive drugs when clinically appropriate. Revise regimen to ensure [id number] excellent BP control and treatment counselor patient on the injurious effects of uncontrolled hypertension. Nonpharmacologic measures to control hypertension like weight loss, salt restriction and exercise discussed. Importance of adherence to treatment regimen and attainment of normotension emphasized. 3. DVT prophylaxis - Lovenox 40 mg SQ q 24 hours. 4. Advance directives - Full code
--- NOTE | 2019-05-03 01:32 | HP ---
CHIEF COMPLAINT: PCP: Dr Arango HISTORY OF PRESENT ILLNESS: Pt is a 59 y/o gentleman with a significant past medical history of HTN, HLD, and borderline DM who presented to [facility] due to shortness of breath and vomiting. Patient endorses that around 8 pm this evening, he was eating dinner with his family. Dinner consisted of hamburgers which were cooked on a BBQ grill. Patient consumed 1 martini as well as 2 glasses of wine. Shortly afterwards, patient went to watch television when he abruptly became short of breath and vomited. Patient has never experienced these symptoms in the past. Patient denies any chest pain, lightheadedness or syncope. SocialHX- Occasional Cigar 2-4 times per year. Alcohol: ~3 drinks per week. Drugs: Denies FamHx- Father Quadruple Cardiac bypass surgery. SurgHx- Polypectomy, Cataracts NKDA ER course was notable for: (1) CTA-Neg for PE. Possible liver cysts or hemangiomas can be further evaluated with ultrasound or MRI. (2) Trop Negative (3) BP 161/123 (4) Received Aspirin, Plavix, Pedcid, IV NS and Valsartan HOME MEDICATIONS: Home Medications Medication Instructions Recorded Cholecalciferol (Vitamin D3) 2,000 unit PO DAILY 01/26/16 [Vitamin D3 -] Multivitamins [Multivit ([facility] 1 tab PO DAILY 01/26/16 Formulary)] [place]-3 Fatty Acids [Fish Oil] 300 mg PO DAILY 01/26/16 Rosuvastatin Calcium [Crestor] 10 mg PO DAILY 01/26/16 Valsartan 160 mg PO DAILY 01/26/16 Aspirin [Aspirin EC] 81 mg PO DAILY 12/01/16 Cider Vinegar [Apple Cider Vinegar] 1,200 mg PO ASDIR 05/31/18 Amlodipine Besylate 10 mg PO DAILY 10/08/18 REVIEW OF SYSTEMS CONSTITUTIONAL: Absent: fever, chills, diaphoresis, generalized weakness, malaise, loss of appetite, weight change HEENT: Absent: rhinorrhea, nasal congestion, throat pain, throat swelling, difficulty swallowing, mouth swelling, ear pain, eye pain, visual changes CARDIOVASCULAR: Absent: chest pain, syncope, palpitations, irregular heart rate, lightheadedness, peripheral edema RESPIRATORY: PRESENT: shortness of breath GASTROINTESTINAL: PRESENT nausea, vomiting GENITOURINARY: Absent: dysuria, frequency, urgency, hesitancy, hematuria, flank pain, genital pain MUSCULOSKELETAL: Absent: myalgia, arthralgia, joint swelling, back pain, neck pain SKIN: Absent: rash, itching, pallor HEMATOLOGIC/IMMUNOLOGIC: Absent: easy bleeding, easy bruising, lymphadenopathy, frequent infections ENDOCRINE: Absent: unexplained weight gain, unexplained weight loss, heat intolerance, cold intolerance NEUROLOGIC: Absent: headache, focal weakness or paresthesias, dizziness, unsteady gait, seizure, mental status changes, bladder or bowel incontinence PSYCHIATRIC: Absent: anxiety, depression, suicidal or homicidal ideation, hallucinations. PHYSICAL EXAMINATION Vital Signs - 24 hr 05/02/19 05/02/19 22:01 22:03 Temperature 97.5 F L Pulse Rate 109 H Respiratory 28 H Rate Blood Pressure 161/123 H O2 Sat by Pulse 100 Oximetry (%) GENERAL: NAD HEAD: Normal with no signs of trauma. EYES: EOMI Sclera Clear EARS, NOSE, THROAT: MMM. NECK: No JVD appreciated LUNGS: CTAB HEART: RRR. No MRG S1S2 ABDOMEN: Soft NDNT BS audible MUSCULOSKELETAL: FROM Throughout LOWER EXTREMITIES: 1+ Pedel Edema NEUROLOGICAL: Cranial nerves II-XII intact. Normal speech. PSYCHIATRIC: Cooperative. Good eye contact. Appropriate mood and affect. SKIN: Warm, dry, normal turgor, no rashes or lesions noted, normal capillary refill. Laboratory Results - last 24 hr 05/02/19 05/02/19 05/02/19 22:30 22:30 22:30 WBC 5.9 RBC 4.45 Hgb 13.3 Hct 39.8 MCV 89.5 MCH 29.9 MCHC 33.4 RDW 13.9 Plt Count 193 MPV 8.4 Absolute Neuts (auto) 3.9 Neutrophils % 66.7 Lymphocytes % 24.1 Monocytes % 7.7 Eosinophils % 0.8 Basophils % 0.7 Nucleated RBC % 0 PT with INR 11.40 INR 0.97 Sodium 143 Potassium 3.6 Chloride 108 H Carbon Dioxide 22 Anion Gap 13 BUN 17.1 Creatinine 1.0 Est GFR (CKD-EPI)AfAm 94.39 Est GFR (CKD-EPI)NonAf 81.44 Random Glucose 160 H Calcium 8.3 L Total Bilirubin 0.4 AST 28 ALT 29 Alkaline Phosphatase 67 Creatine Kinase 304 Creatine Kinase Index 1.3 CK-MB (CK-2) 4.2 H Troponin I < 0.02 B-Natriuretic Peptide 9.8 Total Protein 6.8 Albumin 3.8 ASSESSMENT/PLAN: Pt is a 59 y/o gentleman with a significant past medical history of HTN, HLD, and borderline DM who presented to [facility] due to shortness of breath and vomiting. #SOB/Nausea+Vomiting-Must rule out ACS/PE -Abrupt onset Tachypnea and tachycardia -ASA administered in E.R -EKG--> Incomplete RBBB on one of the EKGs performed. -D-Dimer ordered. -CTA to assess for any P.E -Cardiology on board-Dr Jones -Tele monitoring -Troponin neg. Repeat -Lipid Profile, A1C, TSH -Urine Toxicology -Blood Alcohol level -Echocardiogram to assess for any wall motion abnormalities. #HTN -Cont home Valsartan -Continue home Amlodipine #HLD -Continue Crestor #Borderline DM -A1C -ISS #Possible liver cysts or hemangiomas -Day team consider U/S or MRI #FEN No standing Fluids Monitor Electrolytes Sodium Controlled #DVT ppx: -Lovenox 40 SQ #Dispo -Tele Visit type - Emergency Visit Emergency Visit: Yes ED Registration Date: 05/02/19 Care time: The patient presented to the Emergency Department on the above date and was hospitalized for further evaluation of their emergent condition. - New Patient This patient is new to me today: Yes Date on this admission: 05/03/19 - Critical Care Critical Care patient: No ATTENDING PHYSICIAN STATEMENT I saw and evaluated the patient. I reviewed the resident's note and discussed the case with the resident. I agree with the resident's findings and plan as documented. SUBJECTIVE: OBJECTIVE: ASSESSMENT AND PLAN:
[2019-05-03 04:58] VITALS: BMI 37.5
[2019-05-03 06:37] LABS: BASO % 0.6 % (0-2.0); EOS % 1.3 % (0-4.5); HEMATOCRIT 36.9 % (35.4-49); HEMOGLOBIN 12.5 GM/dL (11.7-16.9); MCH 30.1 pg (25.7-33.7); MCHC 33.9 g/dl (32.0-35.9); MEAN CELL VOLUME 88.8 fl (80-96); MEAN PLT VOLUME 8.8 fl (7.5-11.1); MONO % 11.1 % (3.8-10.2); PLATELET COUNT 179 K/MM3 (134-434); RBC 4.15 M/mm3 (4.00-5.60); RDW 13.9 % (11.9-15.9); WHITE BLOOD COUNT 4.9 K/mm3 (4.0-10.0)
[2019-05-03 06:46] LABS: INR 1.03 (0.83-1.09); PROTHROMBIN TIME (PATIENT) 12.1 SEC (9.7-13.0)
[2019-05-03 06:49] LABS: ACTIVATED PTT 29.9 SECONDS (25.2-36.5)
[2019-05-03 07:21] VITALS: TEMP 98.1
[2019-05-03 07:39] LABS: COCAINE, UR NEGATIVE ng/ml (CUTOFF=300); METHADONE, UR NEGATIVE ng/ml (CUTOFF=300); OPIATES, URI NEGATIVE ng/ml (CUTOFF=300); PHENCYCLIDINE,URINE NEGATIVE ng/ml (CUTOFF=25); URINE AMPHETAMINES NEGATIVE ng/ml (CUTOFF=500); URINE BARBITURATES NEGATIVE ng/ml (CUTOFF=200); URINE BENZODIAZEPINES NEGATIVE ng/ml (CUTOFF=200)
[2019-05-03 07:41] LABS: ALBUMIN 3.4 g/dl (3.4-5.0); BILIRUBIN,TOTAL 0.4 mg/dL (0.2-1); BLOOD UREA NITROGEN 12.9 mg/dL (7-18); CALCIUM 7.9 mg/dL (8.5-10.1); CREATININE 0.8 mg/dL (0.55-1.3); MAGNESIUM 1.9 mg/dL (1.8-2.4); PHOSPHOROUS 4.3 mg/dL (2.5-4.9); POTASSIUM 4.1 mmol/L (3.5-5.1); TOT PROT 6.2 g/dl (6.4-8.2)
--- NOTE | 2019-05-03 08:27 | HOSP ---
Subjective - Review of Symptoms Subjective: Pt is a 59 y/o gentleman with a significant past medical history of HTN, HLD, and borderline DM who presented to [facility] [place] due to shortness of breath and vomiting. Patient endorses that around 8 pm this evening, he was eating dinner with his family. Dinner consisted of hamburgers which were cooked on a BBQ grill. Patient consumed 1 martini as well as 2 glasses of wine. Shortly afterwards, patient went to watch television when he abruptly became short of breath and vomited. Patient has never experienced these symptoms in the past. Patient denies any chest pain, lightheadedness or syncope. SocialHX- Occasional Cigar 2-4 times per year. Alcohol: ~3 drinks per week. Drug s: Denies FamHx- Father Quadruple Cardiac bypass surgery. SurgHx- Polypectomy, Cataracts NKDA Pt is a 59 y/o gentleman with a significant past medical history of HTN, HLD, and borderline DM who presented to [facility] [place]NOTE [place]] due to shortness of breath and vomiting. General: Yes: Chills Physical Examination Vital Signs: Vital Signs Temperature 98.1 F 05/03/19 06:00 Pulse Rate 74 05/03/19 06:00 Respiratory Rate 15 05/03/19 06:00 Blood Pressure 130/68 05/03/19 06:00 O2 Sat by Pulse Oximetry (%) 100 05/03/19 03:30 Labs: CBC, BMP 05/03/19 06:07 05/03/19 06:07
[2019-05-03] MEDS ORDERED: PT OWN MED DRAWER 7, Y5N ONE ×3 (09:16→11:25)
[2019-05-03 09:18] LABS: URINE APPEARANCE CLEAR; URINE BILIRUBIN NEGATIVE (NEGATIVE); URINE COLOR YELLOW; URINE GLUCOSE (UA) NEGATIVE (NEGATIVE); URINE KETONE NEGATIVE (NEGATIVE)
[2019-05-03 09:19] LABS: URINE LEUK ESTERASE NEGATIVE (NEGATIVE); URINE NITRITE NEGATIVE (NEGATIVE); URINE PROTEIN NEGATINE (NEGATIVE); URINE UROBILINOGEN 0.2 mg/dL (0.2-1.0)
[2019-05-03 09:20] LABS: EPI CELLS 1.6 /HPF (0-5/HPF); URINE BACTERIA 15.1 /hpf (NEGATIVE); URINE RBC 2.6 /hpf (0-4); URINE WBC 2.9 /hpf (0-5)
[2019-05-03] MEDS ORDERED: MULTIVITAMINS (DAILY MVI) TABLET (FP) PO SCH (10:00)
[2019-05-03] MEDS ORDERED: ASPIRIN 81 MG CHEWABLE TABLETS PO SCH (10:00)
[2019-05-03] MEDS ORDERED: ENOXAPARIN NA (PORCINE) 40 MG/0.4 ML DISP.SYRIN SQ SCH (10:00)
[2019-05-03] MEDS ORDERED: amLODIPine BESYLATE 5 MG TABLET (FP) PO SCH (10:00)
[2019-05-03] MEDS ORDERED: ASPIRIN COATED 81 MG TABLET.EC PO SCH (10:00)
[2019-05-03] MEDS ORDERED: CHOLECALCIFEROL (VIT D3) 1,000 UNIT (25 MCG) TABLET PO SCH (10:00)
[2019-05-03] MEDS ORDERED: VALSARTAN 160 MG TABLET (UD) PO SCH (10:00)
[2019-05-03 10:49] VITALS: BP 140/88; PULSE 84
--- NOTE | 2019-05-03 10:53 | EKG ---
Test Reason : Blood Pressure : / mmHG Vent. Rate : 075 BPM Atrial Rate : 075 BPM P-R Int : 160 ms QRS Dur : 092 ms QT Int : 418 ms P-R-T Axes : 041 027 018 degrees QTc Int : 466 ms SINUS RHYTHM WITH PREMATURE ATRIAL COMPLEXES RSR' in V1 OTHERWISE NORMAL ECG WHEN COMPARED WITH ECG OF 02-MAY-2019 22:04, SINUS RHYTHM HAS REPLACED JUNCTIONAL RHYTHM Confirmed by MD Kirk, Fracisco ([id number]) on 05/03/2019 10:52:37 AM Referred By: Confirmed By:Fracisco Bradley MD
--- NOTE | 2019-05-03 10:53 | EKG ---
Test Reason : Blood Pressure : / mmHG Vent. Rate : 112 BPM Atrial Rate : 112 BPM P-R Int : 122 ms QRS Dur : 088 ms QT Int : 360 ms P-R-T Axes : 098 073 030 degrees QTc Int : 491 ms POOR DATA QUALITY, INTERPRETATION MAY BE ADVERSELY AFFECTED SINUS TACHYCARDIA OTHERWISE NORMAL ECG WHEN COMPARED WITH ECG OF 19-SEP-2005 20:09, NO SIGNIFICANT CHANGE WAS FOUND Confirmed by MD Kirk, Fracisco ([id number]) on 05/03/2019 10:53:08 AM Referred By: Confirmed By:Fracisco Bradley MD
--- NOTE | 2019-05-03 11:36 | DS ---
Physical Exam: SUBJECTIVE: Patient seen and examined. Cleared for discharge with follow up with Dr Arango/ OBJECTIVE: Vital Signs Period Temp Pulse Resp BP Sys/Johnson Pulse Ox Last 24 Hr 97.5 F-98.1 F 72-109 15-28 118-161/68-123 97-100 PHYSICAL EXAM GENERAL: The patient is awake, alert, and fully oriented, in no acute distress. HEAD: Normal with no signs of trauma. EYES: PERRL, extraocular movements intact, sclera anicteric, conjunctiva clear. ENT: Ears normal, nares patent, oropharynx clear without exudates, moist mucous membranes. NECK: Trachea midline, full range of motion, supple. LUNGS: Breath sounds equal, clear to auscultation bilaterally, no wheezes, no crackles, no accessory muscle use. HEART: Regular rate and rhythm, S1, S2 without murmur, rub or gallop. ABDOMEN: Soft, nontender, nondistended, normoactive bowel sounds, no guarding, no rebound, no hepatosplenomegaly, no masses. EXTREMITIES: 2+ pulses, warm, well-perfused, no edema. NEUROLOGICAL: Cranial nerves II through XII grossly intact. Normal speech, gait not observed. PSYCH: Normal mood, normal affect. SKIN: Warm, dry, normal turgor, no rashes or lesions noted. LABS Laboratory Results - last 24 hr 05/02/19 05/02/19 05/02/19 22:30 22:30 22:30 WBC 5.9 RBC 4.45 Hgb 13.3 Hct 39.8 MCV 89.5 MCH 29.9 MCHC 33.4 RDW 13.9 Plt Count 193 MPV 8.4 Absolute Neuts (auto) 3.9 Neutrophils % 66.7 Lymphocytes % 24.1 Monocytes % 7.7 Eosinophils % 0.8 Basophils % 0.7 Nucleated RBC % 0 PT with INR 11.40 INR 0.97 PTT (Actin FS) D-Dimer Sodium 143 Potassium 3.6 Chloride 108 H Carbon Dioxide 22 Anion Gap 13 BUN 17.1 Creatinine 1.0 Est GFR (CKD-EPI)AfAm 94.39 Est GFR (CKD-EPI)NonAf 81.44 Random Glucose 160 H Hemoglobin A1c % Calcium 8.3 L Phosphorus Magnesium Total Bilirubin 0.4 AST 28 ALT 29 Alkaline Phosphatase 67 Creatine Kinase 304 Creatine Kinase Index 1.3 CK-MB (CK-2) 4.2 H Troponin I < 0.02 B-Natriuretic Peptide 9.8 Total Protein 6.8 Albumin 3.8 Triglycerides Cholesterol Total LDL Cholesterol HDL Cholesterol TSH Urine Color Urine Appearance Urine pH Ur Specific [place] Urine Protein Urine Glucose (UA) Urine Ketones Urine Blood Urine Nitrite Urine Bilirubin Urine Urobilinogen Ur Leukocyte Esterase Urine WBC (Auto) Urine RBC (Auto) Urine Casts (Auto) U Epithel Cells (Auto) Urine Bacteria (Auto) Opiates Screen Methadone Screen Barbiturate Screen Phencyclidine Screen Ur Amphetamines Screen MDMA (Ecstasy) Screen Benzodiazepines Screen Cocaine Screen U Marijuana (THC) Screen Alcohol, Quantitative 05/03/19 05/03/19 05/03/19 01:00 03:47 03:47 WBC RBC Hgb Hct MCV MCH MCHC RDW Plt Count MPV Absolute Neuts (auto) Neutrophils % Lymphocytes % Monocytes % Eosinophils % Basophils % Nucleated RBC % PT with INR INR PTT (Actin FS) D-Dimer < 215 Sodium Potassium Chloride Carbon Dioxide Anion Gap BUN Creatinine Est GFR (CKD-EPI)AfAm Est GFR (CKD-EPI)NonAf Random Glucose Hemoglobin A1c % Calcium Phosphorus Magnesium Total Bilirubin AST ALT Alkaline Phosphatase Creatine Kinase Creatine Kinase Index CK-MB (CK-2) Troponin I B-Natriuretic Peptide Total Protein Albumin Triglycerides Cholesterol Total LDL Cholesterol HDL Cholesterol TSH Urine Color Yellow Urine Appearance Clear Urine pH 5.0 Ur Specific [place] 1.081 H Urine Protein Negatine Urine Glucose (UA) Negative Urine Ketones Negative Urine Blood Negative Urine Nitrite Negative Urine Bilirubin Negative Urine Urobilinogen 0.2 Ur Leukocyte Esterase Negative Urine WBC (Auto) 2.9 Urine RBC (Auto) 2.6 Urine Casts (Auto) 0.0 U Epithel Cells (Auto) 1.6 Urine Bacteria (Auto) 15.1 Opiates Screen Negative Methadone Screen Negative Barbiturate Screen Negative Phencyclidine Screen Negative Ur Amphetamines Screen Negative MDMA (Ecstasy) Screen Negative Benzodiazepines Screen Negative Cocaine Screen Negative U Marijuana (THC) Screen Negative Alcohol, Quantitative 05/03/19 05/03/19 05/03/19 06:07 06:07 06:07 WBC 4.9 RBC 4.15 Hgb 12.5 Hct 36.9 MCV 88.8 MCH 30.1 MCHC 33.9 RDW 13.9 Plt Count 179 MPV 8.8 Absolute Neuts (auto) 2.5 Neutrophils % 50.0 D Lymphocytes % 37.0 D Monocytes % 11.1 H Eosinophils % 1.3 Basophils % 0.6 Nucleated RBC % 0 PT with INR INR PTT (Actin FS) D-Dimer Sodium 146 H Potassium 4.1 Chloride 112 H Carbon Dioxide 26 Anion Gap 8 BUN 12.9 Creatinine 0.8 Est GFR (CKD-EPI)AfAm 112.53 Est GFR (CKD-EPI)NonAf 97.10 Random Glucose 89 Hemoglobin A1c % Calcium 7.9 L Phosphorus 4.3 Magnesium 1.9 Total Bilirubin 0.4 AST 20 ALT 24 Alkaline Phosphatase 59 Creatine Kinase Creatine Kinase Index CK-MB (CK-2) Troponin I B-Natriuretic Peptide 10.1 Total Protein 6.2 L Albumin 3.4 Triglycerides 59 Cholesterol 126 Total LDL Cholesterol 58 HDL Cholesterol 58 TSH 0.78 Urine Color Urine Appearance Urine pH Ur Specific [place] Urine Protein Urine Glucose (UA) Urine Ketones Urine Blood Urine Nitrite Urine Bilirubin Urine Urobilinogen Ur Leukocyte Esterase Urine WBC (Auto) Urine RBC (Auto) Urine Casts (Auto) U Epithel Cells (Auto) Urine Bacteria (Auto) Opiates Screen Methadone Screen Barbiturate Screen Phencyclidine Screen Ur Amphetamines Screen MDMA (Ecstasy) Screen Benzodiazepines Screen Cocaine Screen U Marijuana (THC) Screen Alcohol, Quantitative 05/03/19 05/03/19 05/03/19 06:07 06:07 06:07 WBC RBC Hgb Hct MCV MCH MCHC RDW Plt Count MPV Absolute Neuts (auto) Neutrophils % Lymphocytes % Monocytes % Eosinophils % Basophils % Nucleated RBC % PT with INR 12.10 INR 1.03 PTT (Actin FS) 29.9 D-Dimer Sodium Potassium Chloride Carbon Dioxide Anion Gap BUN Creatinine Est GFR (CKD-EPI)AfAm Est GFR (CKD-EPI)NonAf Random Glucose Hemoglobin A1c % 7.0 H Calcium Phosphorus Magnesium Total Bilirubin AST ALT Alkaline Phosphatase Creatine Kinase Creatine Kinase Index CK-MB (CK-2) Troponin I < 0.02 B-Natriuretic Peptide Total Protein Albumin Triglycerides Cholesterol Total LDL Cholesterol HDL Cholesterol TSH Urine Color Urine Appearance Urine pH Ur Specific [place] Urine Protein Urine Glucose (UA) Urine Ketones Urine Blood Urine Nitrite Urine Bilirubin Urine Urobilinogen Ur Leukocyte Esterase Urine WBC (Auto) Urine RBC (Auto) Urine Casts (Auto) U Epithel Cells (Auto) Urine Bacteria (Auto) Opiates Screen Methadone Screen Barbiturate Screen Phencyclidine Screen Ur Amphetamines Screen MDMA (Ecstasy) Screen Benzodiazepines Screen Cocaine Screen U Marijuana (THC) Screen Alcohol, Quantitative 25.3 H HOSPITAL COURSE: Date of Admission:05/02/19 Date of Discharge: 05/03/19 Pt is a 59 y/o gentleman with a significant past medical history of HTN, HLD, and borderline DM who presented to [facility] due to shortness of breath and vomiting. (1) CTA-Neg for PE. Possible liver cysts or hemangiomas can be further evaluated with ultrasound or MRI as an outpatient (2) Trop Negative (3) BP 161/123 (4) Received Aspirin, Plavix, Pedcid, IV NS and Valsartan Seen by Dr Hilton from cardiology. No evidence of ACS and symptoms resolved. Can follow as outpatient for TTE Minutes to complete discharge: 30 Discharge Summary Problems reviewed: Yes Reason For Visit: CORONARY ARTERY DISEASE, RECENT ONSET OF DIABETES Current Active Problems CAD (coronary artery disease) (Acute) Chest pain (Acute) Diabetes mellitus, new onset (Acute) HTN (hypertension) (Acute) Nausea & vomiting (Acute) Condition: Improved - Instructions Diet, Activity, Other Instructions: DISCHARGE YOUR VISIT You came to the hospital because MEDICATIONS Please continue to take your home medications as prescribed. There was XXXXX changes DIET Continue your home diet ADDITIONAL CARE Please make an appointment to see your primary care provider, [phone] 1 week from today. ADDITIONAL INFORMATION Please call 911 or come directly to the emergency department if you experience unusual headache, vision change, shortness of breath, chest pain, numbness, tingling, loss of alertness/awareness, loss of function, unusual bleeding or any alarming symptoms. Thank you for allowing me to care for you. Julio Rucker, ACNP, [facility] [phone] Disposition: HOME - Home Medications Comprehensive Discharge Medication List: Ambulatory Orders Cholecalciferol (Vitamin D3) [Vitamin D3 -] 2,000 unit PO DAILY 01/26/16 Multivitamins [Multivit ([facility] Formulary)] 1 tab PO DAILY 01/26/16 [place]-3 Fatty Acids [Fish Oil] 300 mg PO DAILY 01/26/16 Rosuvastatin Calcium [Crestor] 10 mg PO DAILY 01/26/16 Valsartan 160 mg PO DAILY 01/26/16 Aspirin [Aspirin EC] 81 mg PO DAILY 12/01/16 Cider Vinegar [Apple Cider Vinegar] 1,200 mg PO DAILY 05/31/18 Amlodipine Besylate 5 mg PO DAILY 10/08/18 Problem List - Problems (1) CAD (coronary artery disease) Code(s): I25.10 - ATHSCL HEART DISEASE OF [place] CORONARY ARTERY W/O ANG PCTRS (2) HTN (hypertension) Code(s): I10 - ESSENTIAL (PRIMARY) HYPERTENSION (3) Nausea & vomiting Code(s): R11.2 - NAUSEA WITH VOMITING, UNSPECIFIED This patient is new to me today: Yes Date on this admission: 05/03/19 Emergency Visit: Yes ED Registration Date: 05/02/19 Care time: The patient presented to the Emergency Department on the above date and was hospitalized for further evaluation of their emergent condition. Critical Care patient: No - Discharge Referral Referred to [facility] Med P.C.: No
--- NOTE | 2019-05-03 17:19 | CONS ---
CARDIOLOGY CONSULTATION DATE OF CONSULTATION: DATE OF CONSULTATION: 05/03/2019 CONSULTATION REQUESTED BY: at the behest of Jacob Arango MD. CHIEF COMPLAINT: 1. Nausea and vomiting. 2. Shortness of breath. HISTORY: Patient is a 59-year-old gentleman with a history of hypertension, hyperlipidemia, history of metabolic syndrome, and truncal obesity who developed the sudden onset of vomiting and according to both his and him, he vomited 2 to 3 times. This was followed by shortness of breath that was pronounced and was persistent and 911 was summoned and he was brought to the emergency room. The patient had a vodka martini followed by 2 glasses of red wine while having dinner which consisted of hamburger and salad. The vomiting occurred after his dinner. There is no history of chest pain or discomfort, either at rest or with exertion, no history of diaphoresis, no history of light-headedness or dizziness, no history of palpitations. No history of abdominal pain or discomfort. In the emergency room he was found to be tachypneic, tachycardic, and apparently was hyperventilating. He had been on oxygen and according to the ER note he had 100% oxygenation. There is no history of recent sore throat, chills, fever, or sweating. PAST HISTORY: As mentioned in the history of present illness. SURGICAL HISTORY: Status post bilateral cataract extraction and lens implantation. SOCIAL HISTORY: . He is employed. He has 2 children, a son and a daughter, who are healthy. He states he does not imbibe alcohol on a regular basis. An occasional cigar. No history of drug use. No history of excessive use of caffeine. FAMILY HISTORY: Father had hypertension and coronary artery disease, had undergone CABG. Mothers history is not available but there is a question of her having hypertension. He has a sister and is unaware of her medical history. ALLERGIES: None reported. MEDICATIONS: Prior to admission were as follows: 1. Valsartan 160 mg p.o. daily. 2. Aspirin 81 mg p.o. daily. 3. [place]-3 fatty acids 300 mg p.o. daily. 4. Multivitamins 1 p.o. daily. 5. Vitamin D3 at 2000 IU p.o. daily. 6. Apple cider vinegar 1200 mg p.o. daily. REVIEW OF SYSTEMS: Constitutional: No history of chills, fevers, or nightsweats. No history of unintentional weight loss. HEENT: No history of headaches, diplopia or blurred vision. No history of epistaxis, hoarseness, tinnitus, or deafness. Respiratory: History of bronchial asthma as a child. No history of cough, expectoration, or hemoptysis. No history of tuberculosis. 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 Apparently he also has a history of mitral valve prolapse. Gastrointestinal: See history of present illness. History of colonic polyps. In the emergency room note there is history of nonalcoholic steatohepatitis. History of liver cysts. Neurologic: No history of seizures, focal weakness, presyncope or syncope. Endocrine: See history of present illness. Denies any polyuria or polydipsia. No history of increased thirst. No history of intolerance to cold or warm weather. Musculoskeletal: No history of myalgias or arthralgias. Genitourinary: No history of dysuria, frequency, or hematuria. Hematologic: No history of bleeding, ecchymosis, or anemia. PHYSICAL EXAMINATION: Vital Signs on Admission: Blood pressure 161/123 mmHg, pulse 109 beats per minute and regular, respirations were 28 per minute, weight 97.8 kg, oxygen saturation on O2 was 100%, temperature was 97.5 degrees Fahrenheit. General: A 59-year-old gentleman, at the time of examination was in no acute distress, resting comfortably. There was no pallor, unable to appreciate cyanosis. There was no clubbing, and jaundice could not be ascertained. Neck: Supple, no jugular venous distension. Carotids are 2+. Upstrokes were normal. No bruits are heard, and no thyromegaly was present. Heart: PMI was in the 5th intercostal space. No heaves or thrills. S1 and S2 were normal. Ejection systolic murmur grade 1 to 2/6 was heard at the 2nd right intercostal space and also along the left sternal border ending in early systole. Murmur was unchanged with Valsalva maneuver or handgrip. No diastolic murmur or gallops were heard. Lungs: Clear on auscultation. Abdomen: Obese, soft and nontender. There was a liver edge palpable. No splenomegaly was felt. No palpable masses were appreciated. Bowel sounds are present. No bruits were heard. Extremities: There was 1 to 2+ bilateral pretibial edema. No calf tenderness was elicited. Homans sign was negative. Pulses were equal. LABORATORY DATA: Initial ECG on May 02, 2019 at 2202 revealed sinus tachycardia, there were baseline artifacts, right axis deviation, equivocal evidence for rSr prime in V1, non-specific ST changes. Repeat ECG at 2202 revealed sinus tachycardia at 111 beats per minute, right axial deviation was slightly more pronounced from previous ECG. There was an incomplete right bundle branch block with lead transition in V2. Non-specific ST changes. There were baseline artifacts when compared to earlier tracings. There was now a clear-cut incomplete right bundle branch block and an early transition in V2. Previous ECGs were not available for comparison. X-ray of the chest is not available. CBC at 2230: WBC 5900, hemoglobin 13.3 g/dL. Normal cell indices. Platelet count was 193,000. Differential: Neutrophils 66.7%, lymphocytes 24.1%, monocytes 7.7%, eosinophils 0.8%, basophils 0.7%. Chemistries: Sodium 143, potassium 3.6, chloride 108, carbon dioxide 22 mmol/L. BUN was 17.1 mg/dL, creatinine 1.0 mg/dL. Random glucose was 160 mg/dL. Calcium 8.3 mg/dL. Normal liver function tests. CK was elevated at 304. CK-MB was elevated at 4.2. Troponin I less than 0.02. BNP was 9.8 pcg/mL. IMPRESSION: 1. Acute dyspnea, etiology to be determined. A. Pulmonary embolus needs to be excluded in view of sinus tachycardia and incomplete right bundle branch block. B. Left ventricular failure needs to be excluded in view of accelerated hypertension. 2. Hypertension, hypertensive cardiovascular disease, poorly controlled. 3. Nausea, vomiting, etiology to be determined. A. Food poisoning needs to be excluded. 4. Ethanol excess. 5. Hypercholesterolemia. 6. History of glucose intolerance. 7. Hypercholesterolemia. 8. History of nonalcoholic steatohepatitis. 9. History of mitral valve prolapse. RECOMMENDATIONS: 1. Follow up ECG and troponin levels. 2. Would suggest a CTA with contrast to exclude PE. 3. Echocardiogram. 4. Follow up BNP. 5. Close follow up of blood pressure and appropriate therapy. 6. Risk modifications. 7. Echocardiogram. PROGNOSIS: Guarded. Time spent by the bedside 11:20 p.m. to 1:55 a.m. Thank you for your referral. Yours sincerely, MILLICENT HARGROVE M.D. MILLICENT HARGROVE M.D. [facility]/[id number]
[2019-05-03] MEDS ORDERED: ROSUVASTATIN CA 10 MG TABLET (FP) PO SCH (22:00)
--- NOTE | 2019-05-06 12:01 | EKG ---
Test Reason : Blood Pressure : / mmHG Vent. Rate : 111 BPM Atrial Rate : 116 BPM P-R Int : 000 ms QRS Dur : 084 ms QT Int : 368 ms P-R-T Axes : 000 063 020 degrees QTc Int : 500 ms POOR DATA QUALITY, INTERPRETATION MAY BE ADVERSELY AFFECTED ACCELERATED JUNCTIONAL RHYTHM NONSPECIFIC ST ABNORMALITY ABNORMAL ECG WHEN COMPARED WITH ECG OF 02-MAY-2019 22:02, JUNCTIONAL RHYTHM HAS REPLACED SINUS RHYTHM Confirmed by MD Aldo, Danny ([id number]) on 05/06/2019 12:01:26 PM Referred By: Confirmed By:Danny Carlson MD
== END 2019-05-03 12:26 | disposition home or self-care (01) | DRG 303 ==
LOC: JER 21:50 → JERBED 23:32 → JICU 05-03 03:17
PROVIDERS: ADMIT Internal Medicine; ATTEND Nurse Practitioner Acute Care
DX: I25.10 Atherosclerotic heart disease of native coronary artery without angina pectoris (principal); I10 Essential (primary) hypertension; E78.5 Hyperlipidemia, unspecified; E66.9 Obesity, unspecified; Z68.27 Body mass index [BMI] 27.0-27.9, adult; I34.1 Nonrheumatic mitral (valve) prolapse; D36.9 Benign neoplasm, unspecified site; K76.89 Other specified diseases of liver; R00.0 Tachycardia, unspecified; E11.9 Type 2 diabetes mellitus without complications; R11.2 Nausea with vomiting, unspecified; K57.90 Diverticulosis of intestine, part unspecified, without perforation or abscess without bleeding; K75.81 Nonalcoholic steatohepatitis (NASH); I45.10 Unspecified right bundle-branch block
CPT/HCPCS: 36415; 71045-TC-FY; 71275-TC; 80053; 80061; 80307; 81003; 82550; 82553; 83036; 83721; 83735; 83880; 84100; 84443; 84484; 85025; 85379; 85610; 85730; 93005; 93010; 99285-25; Q9967

== ENCOUNTER 2021-09-04 08:59 | Day surgery (SDC) | payer OTHER ==
[2021-09-04] MEDS ORDERED: SODIUM CHLORIDE 0.9% 500 ML INFUS.BAG IV ONE (09:25)
[2021-09-04] MEDS ORDERED: ACETAMINOPHEN 1000 MG/100 ML BAG IVPB ONE ×2 (09:28→17:25)
[2021-09-04] MEDS ORDERED: ONDANSETRON 4 MG/2 ML VIAL IVPUSH ONE (09:29)
[2021-09-04] MEDS ORDERED: ONDANSETRON 4 MG/2 ML VIAL ONE (09:41)
[2021-09-04] MEDS ORDERED: ACETAMINOPHEN INJECTION 100 ML IVPB ONE (09:41)
[2021-09-04 09:48] LABS: URINE APPEARANCE CLEAR; URINE BILIRUBIN NEGATIVE (NEGATIVE); URINE COLOR YELLOW; URINE GLUCOSE (UA) NEGATIVE (NEGATIVE); URINE KETONE NEGATIVE (NEGATIVE); URINE LEUK ESTERASE NEGATIVE (NEGATIVE); URINE NITRITE NEGATIVE (NEGATIVE); URINE PROTEIN NEGATIVE (NEGATIVE); URINE UROBILINOGEN 0.2 mg/dL (0.2-1.0)
[2021-09-04 09:56] LABS: BASO % 0.3 % (0-2.0); EOS % 0.4 % (0-4.5); HEMATOCRIT 43.9 % (35.4-49); HEMOGLOBIN 14.5 GM/dL (11.7-16.9); INR 0.94 (0.83-1.09); LYMPH % 9.7 % (8-40); MCH 28.9 pg (25.7-33.7); MCHC 33.1 g/dl (32.0-35.9); MEAN CELL VOLUME 87.4 fl (80-96); MEAN PLT VOLUME 8.5 fl (7.5-11.1); MONO % 8.5 % (3.8-10.2); NEUT % 81.1 % (42.8-82.8); PLATELET COUNT 196 10^3/uL (134-434); PROTHROMBIN TIME (PATIENT) 10.8 SEC (9.7-13.0); RBC 5.02 M/mm3 (4.00-5.60); RDW 14.6 % (11.9-15.9)
[2021-09-04 09:59] LABS: ACTIVATED PTT 29.1 SECONDS (25.2-36.5)
[2021-09-04 10:11] LABS: CALCIUM 9.3 mg/dL (8.5-10.1)
[2021-09-04 10:12] LABS: BLOOD UREA NITROGEN 19.8 mg/dL (7-18)
[2021-09-04 10:17] LABS: BILIRUBIN,TOTAL 0.4 mg/dL (0.2-1); TOT PROT 7.6 g/dl (6.4-8.2)
[2021-09-04] MEDS ORDERED: morphine CARPU-JECT 4 MG/1 ML DISP.SYRIN IVPUSH ONE (11:27)
[2021-09-04] MEDS ORDERED: morphine SULFATE 4 MG/ML VIAL ONE (11:30)
[2021-09-04] MEDS ORDERED: BUPIVACAINE HCL/PF 0.25% (2.5MG/ML) 10 ML VIAL ONE (12:00)
[2021-09-04] MEDS ORDERED: CEFOXITIN SODIUM 2 GM in DEXTROSE 5%-WATER - 100 ML IVPB ONE (12:46)
[2021-09-04] MEDS ORDERED: KETOROLAC TROMETHAMINE 30 MG/1 ML VIAL IVPB ONE (13:38)
[2021-09-04] MEDS ORDERED: KETOROLAC TROMETHAMINE 30 MG/1 ML VIAL ONE (13:39)
[2021-09-04] MEDS ORDERED: PROPOFOL 20 ML ONE ×2 (14:47→16:19)
[2021-09-04] MEDS ORDERED: ROCURONIUM BROMIDE 50 MG/5 ML SYRINGE ONE (14:47)
[2021-09-04] MEDS ORDERED: MIDAZOLAM HCL 2 MG/2 ML SINGLE DOSE VIAL ONE (14:48)
[2021-09-04] MEDS ORDERED: BUPIVACAINE HCL/PF 0.5% (5MG/ML) 10 ML VIAL ONE (15:15)
[2021-09-04] MEDS ORDERED: NEOSTIGMINE METHYLSULFATE 0.5 MG/ML - 10 ML MDV ONE (16:11)
[2021-09-04] MEDS ORDERED: ONDANSETRON 4 MG/2 ML VIAL IVPUSH PRN ×2 (17:21→18:30)
[2021-09-04] MEDS ORDERED: LACTATED RINGERS SOLUTION 1,000 ML IV SCH ×2 (17:30→18:30)
[2021-09-04] MEDS ORDERED: traMADol HCL 50 MG TABLET PO PRN (18:30)
[2021-09-04] MEDS: ACETAMINOPHEN 1000 MG/100 ML BAG IVPB SCH (22:53)
[2021-09-05] MEDS ORDERED: PIPERACILLIN/TAZOBACTAM 3.375 GM VIAL IVPB ONE ×2 (01:04→09:48)
[2021-09-05] MEDS ORDERED: DEXTROSE 5%-WATER - 50 ML IVPB ONE ×2 (01:04→09:48)
[2021-09-05] MEDS: PIPERACILLIN/TAZOB 3.375 GM 3.375 GM in DEXTROSE 5%-WATER - 50 ML IVPB SCH ×2 (01:14→09:52)
[2021-09-05 02:03] VITALS: BMI 35.2
[2021-09-05] MEDS: ACETAMINOPHEN 1000 MG/100 ML BAG IVPB SCH ×2 (05:35→10:41)
[2021-09-05 05:41] VITALS: BP 137/88; PULSE 82; TEMP 98
[2021-09-05 10:59] LABS: HEMATOCRIT 40.7 % (35.4-49); HEMOGLOBIN 13.3 GM/dL (11.7-16.9); MCH 28.8 pg (25.7-33.7); MCHC 32.6 g/dl (32.0-35.9); MEAN CELL VOLUME 88.4 fl (80-96); PLATELET COUNT 181 10^3/uL (134-434); RBC 4.61 M/mm3 (4.00-5.60); RDW 14.4 % (11.9-15.9); WHITE BLOOD COUNT 10.5 K/mm3 (4.0-10.0)
[2021-09-05 11:44] LABS: ANISOCYTOSIS 0; HELMET CELLS 0; HOWELL-JOLLY BODIES 0; MACROCYTOSIS 0; OVALOCYTE 0; ROULEAU 0; SICKELED CELLS 0; TARGET CELLS 0; TEAR DROP CELLS 0; TOXIC GRANULATION 0
[2021-09-05 13:12] LABS: CREATININE 0.9 mg/dL (0.55-1.3)
[2021-09-05 13:13] LABS: BLOOD UREA NITROGEN 12.8 mg/dL (7-18); TOT PROT 6.7 g/dl (6.4-8.2)
[2021-09-05 13:14] LABS: CALCIUM 8.6 mg/dL (8.5-10.1)
[2021-09-05 13:15] LABS: ALBUMIN 3.6 g/dl (3.4-5.0)
[2021-09-05 13:20] LABS: BILIRUBIN,TOTAL 0.5 mg/dL (0.2-1)
== END 2021-09-05 13:46 | disposition home or self-care (01) ==
LOC: JERFT 08:59 → JER 08:59 → JASU-SURG 11:29 → J6S 21:15 → JASU-SURG 09-05 13:46
PROVIDERS: ATTEND Surgery
PROC: 0DTJ4ZZ Resection of Appendix, Percutaneous Endoscopic Approach (ICD-10-PCS; principal; 2021-09-04 15:54)
DX: K35.891 Other acute appendicitis without perforation, with gangrene (principal)
CPT/HCPCS: 36415; 71046-TC-FY; 74177-TC; 80053; 81003; 85025; 85610; 85730; 86850; 86900; 86901; 87086; 88304-TC; 93005; 93010; 94760; 99285-25; C1887; C9803-CS; Q9967; U0003; U0005

== ENCOUNTER 2023-11-27 13:26 | Emergency (ER) | payer BC ==
[2023-11-27] MEDS ORDERED: ONDANSETRON 4 MG/2 ML VIAL ONE (13:37)
[2023-11-27] MEDS: ONDANSETRON 4 MG/2 ML VIAL IVPUSH ONE (13:50)
[2023-11-27] MEDS: SODIUM CHLORIDE 0.9% 1000 ML INFUS.BAG IV ONE (13:50)
[2023-11-27 13:57] LABS: VENOUS BASE EXCESS -1.1 mmol/L (-2-2); VENOUS PCO2 30.9 mmHg (38-52); VENOUS PH 7.461 (7.310-7.410)
[2023-11-27 14:02] VITALS: RESP 20; TEMP 98.4; BMI 35.6
[2023-11-27 14:10] LABS: INR 1.02 (0.83-1.09); PROTHROMBIN TIME (PATIENT) 11.5 SEC (9.7-13.0)
[2023-11-27 14:11] LABS: BASO % 0.1 % (0-2.0); EOS % 0.3 % (0-4.5); LYMPH % 4.7 % (8-40); MCH 29.2 pg (25.7-33.7); MCHC 32.5 g/dl (32.0-35.9); MEAN CELL VOLUME 89.7 fl (80-96); MEAN PLT VOLUME 9.1 fl (7.5-11.1); MONO % 9.4 % (3.8-10.2); NEUT % 85.5 % (42.8-82.8); PLATELET COUNT 233 10^3/uL (134-434); RBC 5.12 M/mm3 (4.00-5.60); RDW 14.7 % (11.9-15.9); WHITE BLOOD COUNT 11.8 K/mm3 (4.0-10.0)
[2023-11-27 14:12] LABS: ACTIVATED PTT 29.7 SECONDS (25.2-36.5)
[2023-11-27 14:21] LABS: POTASSIUM 4.4 mmol/L (3.5-5.1)
[2023-11-27 14:23] LABS: CALCIUM 9.7 mg/dL (8.5-10.1)
[2023-11-27 14:24] LABS: ALBUMIN 4.4 g/dl (3.4-5.0); BLOOD UREA NITROGEN 23.7 mg/dL (7-18)
[2023-11-27 14:26] LABS: CREATININE 1.3 mg/dL (0.55-1.3)
[2023-11-27 14:28] LABS: BILIRUBIN,TOTAL 1.1 mg/dL (0.2-1); TOT PROT 7.5 g/dl (6.4-8.2)
[2023-11-27] MEDS ORDERED: FAMOTIDINE 20 MG/50 ML IVPB 20 MG/50 ML MG IVPB ONE (14:42)
[2023-11-27 14:47] LABS: LACTIC ACID 4.3 mmol/L (0.4-2.0)
[2023-11-27] MEDS: LACTATED RINGERS SOLUTION 1000 ML INFUS.BAG IV ONE (14:49)
[2023-11-27] MEDS: FAMOTIDINE 20 MG/50 ML IVPB 20 MG/50 ML MG IVPB ONE (14:49)
[2023-11-27 15:27] LABS: PH,URINE 5.5 (5.0-8.0); URINE APPEARANCE CLEAR; URINE BILIRUBIN NEGATIVE (NEGATIVE); URINE COLOR DK YELLOW; URINE GLUCOSE (UA) NEGATIVE (NEGATIVE); URINE KETONE 3+ (NEGATIVE); URINE LEUK ESTERASE NEGATIVE (NEGATIVE); URINE NITRITE NEGATIVE (NEGATIVE); URINE PROTEIN TRACE (NEGATIVE)
[2023-11-27 16:23] LABS: POTASSIUM 4.8 mmol/L (3.5-5.1)
[2023-11-27 16:25] LABS: CALCIUM 8.4 mg/dL (8.5-10.1)
[2023-11-27 16:26] LABS: ALBUMIN 3.3 g/dl (3.4-5.0); BLOOD UREA NITROGEN 22.9 mg/dL (7-18)
[2023-11-27 16:31] LABS: BILIRUBIN,TOTAL 0.8 mg/dL (0.2-1); TOT PROT 5.8 g/dl (6.4-8.2)
[2023-11-27 17:13] VITALS: BP 126/71; PULSE 77
== END 2023-11-27 17:13 | disposition home or self-care (01) ==
LOC: JER 13:26
PROC: 3E033GC Introduction of Other Therapeutic Substance into Peripheral Vein, Percutaneous Approach (ICD-10-PCS; principal; 2023-11-27)
PROC: 3E033GC Introduction of Other Therapeutic Substance into Peripheral Vein, Percutaneous Approach (ICD-10-PCS; 2023-11-27)
DX: R11.2 Nausea with vomiting, unspecified (principal); R06.02 Shortness of breath; T38.3X5A Adverse effect of insulin and oral hypoglycemic [antidiabetic] drugs, initial encounter; Z20.822 Contact with and (suspected) exposure to COVID-19
CPT/HCPCS: 0241U-QW; 36415; 71045-TC-FY; 80053; 81003; 82010; 82803; 82962; 83605; 83690; 83735; 84484; 85025; 85610; 85730; 87086; 93005; 93010; 99285-25